=== PATIENT | male | born 1995 | race Caucasian/White ===

== ENCOUNTER 2023-01-05 09:05 | Emergency (ER) | payer SELFPAY ==
[~2023-01-05] VITALS: Ht 172.7 cm; Wt 98.0 kg
[2023-01-05 09:33] VITALS: BP 100/68
[2023-01-05] MEDS ORDERED: LIDOCAINE MPF 1% 10 MG/ML VIAL INJ ONE (10:45)
[2023-01-05] MEDS ORDERED: NAPR-1704 PO (10:48)
[2023-01-05 11:30] VITALS: BP 100/68
--- NOTE | 2023-01-05 11:34 | NUR ---
NON ADHERENT APPLIED TO R GREAT TOE. + CMS
== END 2023-01-05 13:01 | disposition home or self-care (01) ==
LOC: MED 09:05
DX: L60.0 Ingrowing nail (principal); Z79.899 Other long term (current) drug therapy
CPT/HCPCS: 11730; 99284

== ENCOUNTER 2023-11-24 09:43 | Emergency (ER) | payer SELFPAY ==
[~2023-11-24] VITALS: Ht 170.2 cm; Wt 99.8 kg
[~2023-11-24 09:43] MED LIST: NAPR-1704 PO
[2023-11-24 09:54] VITALS: BP 135/76; PULSE 78; RESP 18; TEMP 98.2; O2SAT 98
[2023-11-24 11:10] VITALS: BP 135/76; PULSE 78; RESP 18; TEMP 98.2; O2SAT 98
== END 2023-11-24 11:10 | disposition home or self-care (01) ==
LOC: MED 09:43
DX: R00.2 Palpitations (principal); F15.90 Other stimulant use, unspecified, uncomplicated; R20.0 Anesthesia of skin; Z79.899 Other long term (current) drug therapy
CPT/HCPCS: 93005; 99283